=== PATIENT | female | born 1990 | race Caucasian/White ===

== ENCOUNTER 2016-05-28 17:00 | Emergency (ER) | payer OTHER | END 2016-05-28 19:00 | disposition home or self-care (01) | DX: F31.64 Bipolar disorder, current episode mixed, severe, with psychotic features (principal); Z02.89 Encounter for other administrative examinations ==

== ENCOUNTER 2023-09-21 10:59 | Outpatient (CLI) | payer OTHER ==
--- NOTE | 2023-09-21 12:07 | XRAY Report ---
PROCEDURE: Lumbar Spine 2-3V INDICATIONS: LOW BACK PAIN, UNSPECIFIED TECHNIQUE: 3 views of the lumbar spine were acquired. COMPARISON: None. FINDINGS: Bones: Vertebral body heights are well-maintained. No high-grade degenerative changes. No traumatic s ubluxation. Soft tissues: Moderate fecal loading. No suspicious calcifications. IMPRESSION: No acute radiographic abnormality of high-grade degenerative changes. If there is high concern for fu rther derangement, consider MRI evaluation. Reviewed by: Cesar Asher MD on 09/21/2023 12:06 PM PDT Approved by: Cesar Asher MD on 09/21/2023 12:06 PM PDT Station ID: [id number]
== END 2023-09-21 11:00 | disposition home or self-care (01) ==
LOC: DI.N 10:59
PROVIDERS: ATTEND Nurse Practitioner
DX: M54.50 Low back pain, unspecified (principal)